=== PATIENT | male | born 1990 | race African-American/Black ===

== ENCOUNTER 2023-02-22 08:48 | Emergency (ER) | payer OTHER ==
[2023-02-22 09:05] VITALS: BP 127/73; PULSE 80; RESP 12; TEMP 98.3; BMI 28.8
[2023-02-22] MEDS ORDERED: IBUPROFEN 600 MG TABLET (FP) PO ONE ×2 (09:31→10:06)
[2023-02-22 10:35] LABS: BASO % 0.2 % (0-2.0); EOS % 0.6 % (0-4.5); HEMATOCRIT 41.8 % (35.4-49); HEMOGLOBIN 14.1 GM/dL (11.7-16.9); LYMPH % 26.6 % (8-40); MCH 26.5 pg (25.7-33.7); MCHC 33.6 g/dl (32.0-35.9); MEAN CELL VOLUME 78.9 fl (80-96); MEAN PLT VOLUME 7.9 fl (7.5-11.1); MONO % 7.4 % (3.8-10.2); NEUT % 65.2 % (42.8-82.8); PLATELET COUNT 200 10^3/uL (134-434); RDW 14.8 % (11.9-15.9); WHITE BLOOD COUNT 8.3 K/mm3 (4.0-10.0)
[2023-02-22 10:55] LABS: ALBUMIN 4.2 g/dl (3.4-5.0); BLOOD UREA NITROGEN 10.2 mg/dL (7-18); CALCIUM 9.9 mg/dL (8.5-10.1)
[2023-02-22 10:58] LABS: CREATININE 1.1 mg/dL (0.55-1.3)
[2023-02-22 11:00] LABS: BILIRUBIN,TOTAL 0.5 mg/dL (0.2-1); TOT PROT 7.9 g/dl (6.4-8.2)
== END 2023-02-22 13:14 | disposition home or self-care (01) ==
LOC: JER 08:48 → JERFT 08:48
DX: K04.7 Periapical abscess without sinus (principal); K08.89 Other specified disorders of teeth and supporting structures
CPT/HCPCS: 36415; 70487-TC; 80053; 85025; 99285-25; Q9967